=== PATIENT | male | born 2000 | race Caucasian/White ===

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

== ENCOUNTER 2021-03-09 11:55 | Emergency (ER) | payer SELFPAY ==
[~2021-03-09 11:55] MED LIST: CIPRODEX OTIC7.5 ML OT; ZITHROMAX250 MG PO
[2021-03-09 14:50] LABS: HEMOGLOBIN 16.3 gm/dl (14.0-17.5); RED BLOOD COUNT 5.14 M/UL (4.20-5.50); WHITE BLOOD COUNT 6.8 K/UL (4.5-11.0)
[2021-03-09 15:22] LABS: BUN/CREATININE RATIO 13 (0-10)
== END 2021-03-09 16:12 | disposition home or self-care (01) ==
LOC: ER1 11:55
PROVIDERS: Emergency Medicine
DX: R07.9 Chest pain, unspecified (principal); R06.02 Shortness of breath
CPT/HCPCS: 71046; 80053; 82550; 82553; 83690; 83735; 83874; 84484; 85025; 85379; 93005; 96374; 99285; J1885

== ENCOUNTER 2021-09-07 22:40 | Emergency (ER) | payer OTHER ==
[2021-09-08] MEDS ORDERED: LODINE CAP 300300 MG PO (04:31)
[2021-09-08] MEDS ORDERED: NORFLEX 100 MG100 MG PO (04:31)
== END 2021-09-08 04:24 | disposition home or self-care (01) ==
LOC: ER1 22:40
DX: S20.212A Contusion of left front wall of thorax, initial encounter (principal); S80.812A Abrasion, left lower leg, initial encounter; R51.9 Headache, unspecified; Z88.0 Allergy status to penicillin; Z88.5 Allergy status to narcotic agent; V86.99XA Unspecified occupant of other special all-terrain or other off-road motor vehicle injured in nontraffic accident, initial encounter; F17.210 Nicotine dependence, cigarettes, uncomplicated
CPT/HCPCS: 70450; 71260; 72125; 99283; Q9967